=== PATIENT | female | born 1950 ===

== ENCOUNTER 2017-05-19 10:25 | Emergency (ER) | payer MEDICARE ==
--- NOTE | 2017-05-19 11:50 | RAD ---
INDICATION: Left arm bruising after a fall the previous day (location of bruising not specified) TECHNIQUE: 2 views of the left forearm were obtained. FINDINGS: Degenerative changes include joint space narrowing and sclerosis at the left thumb metacarpal trapezium joint and the left radiocarpal joint. The visualized bones otherwise appear to be intact and appropriately aligned. IMPRESSION: No radiographic evidence of acute fracture or dislocation. If the patient's symptoms persist, follow-up imaging is recommended.
--- NOTE | 2017-05-19 12:17 | UC ---
Upper Extremity HPI - HPI Summary HPI Summary: 67 yo WF c/o left wrist pain while trying to catch her fall x3 days ago. C/o left distal radial pain, ROM intact - History of Current Complaint Chief Complaint: UCUpperExtremity Stated Complaint: ARM INJURY Time Seen by Provider: 05/19/17 11:00 Hx Obtained From: Patient Onset/Duration: Sudden Onset Severity Initially: Moderate Character: Sharp Aggravating Factor(s): Movement Associated Signs And Symptoms: Positive: Swelling. Negative: Numbness/Tingling Related History: Dominant Hand Right - Allergies/Home Medications Allergies/Adverse Reactions: Allergies Allergy/AdvReac Type Severity Reaction Status Date / Time Trifluridine Allergy Itching Verified 05/19/17 10:41 Home Medications: Home Medications Coenzyme Q10 (Ubidecarenone) [Coq-10] 30 mg PO DAILY 05/19/17 [History Confirmed 05/19/17] Hydrochlorothiazide TAB* [Hydrodiuril TAB*] 25 mg PO DAILY 05/19/17 [History Confirmed 05/19/17] Lisinopril 10 mg PO DAILY 05/19/17 [History Confirmed 05/19/17] Simvastatin TAB(NF) [Zocor 10 MG (NF)] 10 mg PO DAILY 05/19/17 [History Confirmed 05/19/17] Venlafaxine TAB (NF) [Effexor TAB (NF)] 75 mg PO DAILY 05/19/17 [History Confirmed 05/19/17] PMH/Surg Hx/FS Hx/Imm Hx Previously Healthy: Yes Endocrine History: Diabetes - Surgical History Surgical History: Yes Surgery Procedure, Year, and Place: right arm surgery; lumpectomy - Social History Alcohol Use: Occasionally Substance Use Type: None Smoking Status (MU): Never Smoked Tobacco - Immunization History Most Recent Influenza Vaccination: 03/2017 Review of Systems Constitutional: Negative Skin: Negative Eyes: Negative ENT: Negative Respiratory: Negative Cardiovascular: Negative Gastrointestinal: Negative Genitourinary: Negative Motor: Negative Neurovascular: Negative Musculoskeletal: Negative - left radial painafter fall, Other: Neurological: Negative Psychological: Negative All Other Systems Reviewed And Are Negative: Yes Physical Exam Triage Information Reviewed: Yes Appearance: Well-Appearing Vital Signs: Initial Vital Signs Temp 37.0 C 05/19/17 10:35 Pulse 106 05/19/17 10:35 Resp 16 05/19/17 10:35 BP 143/74 05/19/17 10:35 Pulse Ox 99 05/19/17 10:35 Vital Signs Reviewed: Yes Eye Exam: Normal ENT Exam: Normal Neck: Positive: Supple Respiratory Exam: Normal Cardiovascular Exam: Normal Abdominal Exam: Normal Musculoskeletal: Positive: Strength Limited @, ROM Limited @, Other: - left distal radial TTP, swelling and ecchymosis on wrist, able to supinate and pronate, radial pulse 2+ and NVI Skin Exam: Normal Upper Extremity Course/Dx - Course Course Of Treatment: XR of left wrist - small fx in distal radius, radiologist read as neg, volar splint applied - Differential Dx/Diagnosis Provider Diagnoses: right radial fracture Discharge - Discharge Plan Condition: Stable Disposition: HOME Referrals: No Primary Care Phys,NOPCP [Primary Care Provider] - [facility] [Outside] Additional Instructions: follow up with ortho in 1 week
[2017-05-19 12:39] VITALS: BP 137/79
== END 2017-05-19 12:26 | disposition home or self-care (01) ==
LOC: UCEAST 10:25
DX: S52.91XA Unspecified fracture of right forearm, initial encounter for closed fracture (principal); W19.XXXA Unspecified fall, initial encounter; Y93.9 Activity, unspecified; Y92.9 Unspecified place or not applicable; Y99.9 Unspecified external cause status; Z72.89 Other problems related to lifestyle
CPT/HCPCS: 99202; G0463

== ENCOUNTER 2017-05-23 09:21 | Emergency (ER) | payer MEDICARE, OTHER ==
[2017-05-23 09:40] VITALS: BP 147/75
--- NOTE | 2017-05-23 10:30 | UC ---
Throat Pain/Nasal John HPI - HPI Summary HPI Summary: Pt presents with 2 days sore throat. Reports head congestion. sharp pain with swallowing. No drooling. No fever, chills, rash. Pt with tactile temp relieved with motrin.. Pt has taken OTC meds with mild relief. No drooling. No difficulty with breathing pt's medications reviewed this visit - History of Current Complaint Chief Complaint: UCRespiratory Stated Complaint: SORE THROAT Time Seen by Provider: 05/23/17 10:28 - Allergies/Home Medications Allergies/Adverse Reactions: Allergies Allergy/AdvReac Type Severity Reaction Status Date / Time Trifluridine Allergy Itching Verified 05/19/17 10:41 PMH/Surg Hx/FS Hx/Imm Hx Previously Healthy: Yes Cardiovascular History: Hypertension - Surgical History Surgical History: Yes Surgery Procedure, Year, and Place: right arm surgery; lumpectomy - Social History Occupation: Retired Lives: With Family - pt visiting from [place] Alcohol Use: Occasionally Substance Use Type: None Smoking Status (MU): Never Smoked Tobacco - Immunization History Most Recent Influenza Vaccination: 03/2017 Review of Systems Constitutional: Fever ENT: Sore Throat, Sinus Congestion All Other Systems Reviewed And Are Negative: Yes Physical Exam Triage Information Reviewed: Yes Appearance: Well-Appearing, No Pain Distress, Well-Nourished Vital Signs: Initial Vital Signs Temp 97.9 F 05/23/17 09:37 Pulse 92 05/23/17 09:37 Resp 16 05/23/17 09:37 BP 147/75 05/23/17 09:37 Pulse Ox 98 05/23/17 09:37 Vital Signs Reviewed: Yes Eye Exam: Normal Eyes: Positive: Conjunctiva Clear ENT: Positive: Hearing grossly normal, Pharyngeal erythema, Nasal congestion, TMs normal. Negative: Sinus tenderness Dental Exam: Normal Neck exam: Normal Neck: Positive: Supple, Nontender, No Lymphadenopathy Respiratory Exam: Normal Respiratory: Positive: Chest non-tender, Lungs clear, Normal breath sounds, No respiratory distress, No accessory muscle use Cardiovascular Exam: Normal Cardiovascular: Positive: RRR, No Murmur, Pulses Normal Abdominal Exam: Normal Abdomen Description: Positive: Nontender, No Organomegaly, Soft Bowel Sounds: Positive: Present Musculoskeletal Exam: Normal Musculoskeletal: Positive: Other: - pt's left hand splint s/p fall and fracture 2 days ago Neurological Exam: Normal Psychological Exam: Normal Throat Pain/Nasal Course/Dx - Course Assessment/Plan: Pt with sore throat progressive x 3 days. Pt withotu known sick contact. + strep positive. secretion precautions. motrin/apap. rest. hydrate - Differential Dx/Diagnosis Provider Diagnoses: strep pharyngitis Discharge - Discharge Plan Condition: Stable Disposition: HOME Prescriptions: Amoxicillin PO (*) [Amoxicillin 875 MG (*)] 875 mg PO BID #20 tab Fluticasone NASAL SPRAY 50MCG* [Flonase NASAL SPRAY 50MCG*] 2 spray BOTH NARES DAILY #1 btl Patient Education Materials: Strep Throat (ED) Referrals: No Primary Care Phys,NOPCP [Primary Care Provider] - Additional Instructions: - Stay well hydrated. Drink plenty of non-alcoholic, non-caffinated beverages. - Gargle with warm, salt water 2-3 times a day - Cold beverages may be soothing to your throat - popsicles, apple sauce, jello - After you have been on antibiotics for 2 days - change your toothbrush and your pillowcase. These infections are spread by secretions - do NOT share eating or drinking utensils - clean items you share with other people such as cell phones, computer mouse, TV remote, computer tablets, etc - use nasal spray as prescribed - it is recommended you take a decongestant (Claritin-D, Nichole-D, Sudafed) before your flight. This may cause an elevation in your blood pressure - Alternate ibuprofen (Advil, Motrin) 600mg and Tylenol every 3 hours for pain or fever. Take with food. Do NOT take for more than 4-5 days. Contact your doctor to schedule a follow-up appointment when you return home. Call your doctor with questions or concerns
== END 2017-05-23 10:52 | disposition home or self-care (01) ==
LOC: UCEAST 09:21
DX: J02.0 Streptococcal pharyngitis (principal); I10 Essential (primary) hypertension
CPT/HCPCS: 87651; 99212; G0463